=== PATIENT | female | born 1940 | race Caucasian/White ===

== ENCOUNTER 2020-11-28 10:36 | Inpatient (IN) | payer OTHER ==
[2020-11-28 12:24] LABS: BASO % 0.4 % (0-2.0); EOS % 0.2 % (0-4.5); HEMATOCRIT 40.9 % (32.4-45.2); HEMOGLOBIN 13.5 GM/dL (10.7-15.3); LYMPH % 5.3 % (8-40); MCH 30.4 pg (25.7-33.7); MEAN CELL VOLUME 92.1 fl (80-96); MEAN PLT VOLUME 10.4 fl (7.5-11.1); MONO % 6.6 % (3.8-10.2); NEUT % 87.5 % (42.8-82.8); PLATELET COUNT 262 K/MM3 (134-434); RBC 4.44 M/mm3 (3.60-5.2); RDW 14.1 % (11.6-15.6); WHITE BLOOD COUNT 14.8 K/mm3 (4.0-10.0)
[2020-11-28 12:51] LABS: ALBUMIN 3.7 g/dl (3.4-5.0); BLOOD UREA NITROGEN 40.7 mg/dL (7-18); CALCIUM 9.1 mg/dL (8.5-10.1)
[2020-11-28 12:54] LABS: CREATININE 1.1 mg/dL (0.55-1.3)
[2020-11-28 12:56] LABS: BILIRUBIN,TOTAL 0.8 mg/dL (0.2-1); TOT PROT 7.5 g/dl (6.4-8.2)
[2020-11-28 13:13] LABS: N-TERMINAL BNP 357.4 pg/ml (5-450)
[2020-11-28] MEDS: ACETAMINOPHEN 1000 MG/100 ML BAG IVPB ONE ×2 (16:36→16:47)
[2020-11-28] MEDS ORDERED: ACETAMINOPHEN INJECTION 100 ML IVPB ONE (16:37)
[2020-11-28 16:44] LABS: EPI CELLS >36 /uL (0-25.1); HYALINE CASTS 3 /uL (0-3.1); PH,URINE 5.5 (5.0-8.0); URINE APPEARANCE CLOUDY; URINE BACTERIA 463 /uL (0-1359); URINE BILIRUBIN NEGATIVE (NEGATIVE); URINE COLOR YELLOW; URINE GLUCOSE (UA) NEGATIVE (NEGATIVE); URINE KETONE 2+ (NEGATIVE); URINE LEUK ESTERASE 1+ (NEGATIVE); URINE NITRITE NEGATIVE (NEGATIVE); URINE PROTEIN 1+ (NEGATIVE); URINE RBC 226 /uL (0-23.9); URINE UROBILINOGEN 0.2 mg/dL (0.2-1.0); URINE WBC 55 /uL (0-25.8)
[2020-11-28] MEDS ORDERED: CEFTRIAXONE 1,000 MG in DEXTROSE 5%-WATER - 50 ML IVPB ONE (17:08)
[2020-11-28] MEDS ORDERED: CEFTRIAXONE 1 GM/50 ML BAG ONE (17:31)
[2020-11-28] MEDS ORDERED: ACETAMINOPHEN 325 MG TABLET (FP) PO PRN (20:24)
[2020-11-28] MEDS: HEPARIN NA (PORCINE) 5,000 UNITS/ML 1ML VIAL SQ SCH (22:15)
[2020-11-28] MEDS ORDERED: HEPARIN NA (PORCINE) 5,000 UNITS/ML 1ML VIAL ONE (22:17)
[2020-11-29] MEDS ORDERED: ACETAMINOPHEN 325 MG TABLET (FP) ONE (05:14)
[2020-11-29] MEDS ORDERED: HEPARIN NA (PORCINE) 5,000 UNITS/ML 1ML VIAL ONE (05:33)
[2020-11-29] MEDS: HEPARIN NA (PORCINE) 5,000 UNITS/ML 1ML VIAL SQ SCH ×3 (05:51→22:08)
[2020-11-29 07:34] LABS: BASO % 0.2 % (0-2.0); EOS % 0.2 % (0-4.5); HEMATOCRIT 39.7 % (32.4-45.2); HEMOGLOBIN 13.2 GM/dL (10.7-15.3); INR 1.09 (0.83-1.09); MCH 30.6 pg (25.7-33.7); MCHC 33.4 g/dl (32.0-36.0); MEAN CELL VOLUME 91.6 fl (80-96); MEAN PLT VOLUME 9.8 fl (7.5-11.1); MONO % 9.4 % (3.8-10.2); NEUT % 83.2 % (42.8-82.8); PLATELET COUNT 240 K/MM3 (134-434); PROTHROMBIN TIME (PATIENT) 13.4 SEC (9.7-13.0); RBC 4.33 M/mm3 (3.60-5.2); WHITE BLOOD COUNT 11.7 K/mm3 (4.0-10.0)
[2020-11-29 07:36] LABS: ACTIVATED PTT 30.2 SECONDS (25.2-36.5)
[2020-11-29 07:44] LABS: MAGNESIUM 2.1 mg/dL (1.8-2.4)
[2020-11-29 07:48] LABS: PHOSPHOROUS 3.3 mg/dL (2.5-4.9)
[2020-11-29] MEDS ORDERED: CEFTRIAXONE 1 GM/50 ML BAG ONE (09:18)
[2020-11-29] MEDS: CEFTRIAXONE 1 GM in DEXTROSE 5%-WATER - 50 ML IVPB SCH (09:22)
[2020-11-29 09:25] LABS: CALCIUM 9.2 mg/dL (8.5-10.1)
[2020-11-29 09:26] LABS: ALBUMIN 3.5 g/dl (3.4-5.0); BLOOD UREA NITROGEN 31.9 mg/dL (7-18)
[2020-11-29 09:30] LABS: BILIRUBIN,TOTAL 0.7 mg/dL (0.2-1); CREATININE 0.8 mg/dL (0.55-1.3)
[2020-11-29 14:51] VITALS: BMI 30.8
[2020-11-29] MEDS ORDERED: amLODIPine BESYLATE 10 MG TABLET (FP) PO ONE (21:13)
[2020-11-29 23:49] LABS: HIV INTERPRETATION NEGATIVE (NEGATIVE)
[2020-11-30] MEDS: HEPARIN NA (PORCINE) 5,000 UNITS/ML 1ML VIAL SQ SCH ×3 (07:00→21:47)
[2020-11-30] MEDS ORDERED: cefTRIAXone SODIUM 1 GM VIAL ONE (10:03)
[2020-11-30] MEDS ORDERED: DEXTROSE 5%-WATER - 50 ML IVPB ONE (10:03)
[2020-11-30 10:07] LABS: BASO % 0.6 % (0-2.0); EOS % 0.5 % (0-4.5); HEMATOCRIT 40.5 % (32.4-45.2); HEMOGLOBIN 13.7 GM/dL (10.7-15.3); MCHC 33.9 g/dl (32.0-36.0); MEAN CELL VOLUME 91.4 fl (80-96); MEAN PLT VOLUME 9.7 fl (7.5-11.1); MONO % 9.1 % (3.8-10.2); NEUT % 80.8 % (42.8-82.8); PLATELET COUNT 269 K/MM3 (134-434); RBC 4.43 M/mm3 (3.60-5.2); RDW 14.3 % (11.6-15.6); WHITE BLOOD COUNT 10.2 K/mm3 (4.0-10.0)
[2020-11-30] MEDS: CEFTRIAXONE 1 GM in DEXTROSE 5%-WATER - 50 ML IVPB SCH (10:28)
[2020-11-30] MEDS: amLODIPine BESYLATE 5 MG TABLET (FP) PO SCH (10:30)
[2020-11-30 10:36] LABS: ALBUMIN 3.4 g/dl (3.4-5.0); CALCIUM 9.1 mg/dL (8.5-10.1); MAGNESIUM 2.5 mg/dL (1.8-2.4)
[2020-11-30 10:37] LABS: BLOOD UREA NITROGEN 34.6 mg/dL (7-18)
[2020-11-30 10:39] LABS: PHOSPHOROUS 2.9 mg/dL (2.5-4.9)
[2020-11-30 10:40] LABS: CREATININE 0.8 mg/dL (0.55-1.3)
[2020-11-30 10:41] LABS: BILIRUBIN,TOTAL 0.5 mg/dL (0.2-1); TOT PROT 7.1 g/dl (6.4-8.2)
[2020-11-30 14:58] LABS: SYPHILIS W/ RPR CONF REACTIVE (NONREACTIVE)
[2020-12-01] MEDS: HEPARIN NA (PORCINE) 5,000 UNITS/ML 1ML VIAL SQ SCH ×4 (06:55→21:01)
[2020-12-01] MEDS ORDERED: cefTRIAXone SODIUM 1 GM VIAL ONE (08:33)
[2020-12-01] MEDS ORDERED: DEXTROSE 5%-WATER - 50 ML IVPB ONE (08:33)
[2020-12-01] MEDS: CEFTRIAXONE 1 GM in DEXTROSE 5%-WATER - 50 ML IVPB SCH (09:11)
[2020-12-01] MEDS: amLODIPine BESYLATE 5 MG TABLET (FP) PO SCH (09:11)
[2020-12-01 09:26] LABS: BASO % 0.3 % (0-2.0); EOS % 0.7 % (0-4.5); HEMATOCRIT 40.2 % (32.4-45.2); HEMOGLOBIN 13.4 GM/dL (10.7-15.3); MCH 30.8 pg (25.7-33.7); MCHC 33.4 g/dl (32.0-36.0); MEAN CELL VOLUME 92.2 fl (80-96); MEAN PLT VOLUME 9.8 fl (7.5-11.1); MONO % 10.2 % (3.8-10.2); NEUT % 79.8 % (42.8-82.8); PLATELET COUNT 263 K/MM3 (134-434); RBC 4.37 M/mm3 (3.60-5.2); RDW 14.2 % (11.6-15.6); WHITE BLOOD COUNT 9.5 K/mm3 (4.0-10.0)
[2020-12-01 09:49] LABS: CALCIUM 9.4 mg/dL (8.5-10.1)
[2020-12-01 09:50] LABS: ALBUMIN 3.4 g/dl (3.4-5.0); BLOOD UREA NITROGEN 48.3 mg/dL (7-18); MAGNESIUM 2.6 mg/dL (1.8-2.4)
[2020-12-01 09:53] LABS: CREATININE 0.9 mg/dL (0.55-1.3); PHOSPHOROUS 3.3 mg/dL (2.5-4.9)
[2020-12-01 09:54] LABS: BILIRUBIN,TOTAL 0.8 mg/dL (0.2-1)
[2020-12-01] MEDS ORDERED: amLODIPine BESYLATE 10 MG TABLET (FP) PO SCH (15:39)
[2020-12-01] MEDS ORDERED: HALOPERIDOL 1 MG TABLET PO ONE (17:45)
[2020-12-01] MEDS ORDERED: HALOPERIDOL 0.5 MG TABLET PO ONE (18:00)
[2020-12-02] MEDS: HEPARIN NA (PORCINE) 5,000 UNITS/ML 1ML VIAL SQ SCH ×2 (05:50→14:14)
[2020-12-02] MEDS ORDERED: POTASSIUM CHLORIDE ORAL LIQUID 20 MEQ/15 ML PO ONE (07:45)
[2020-12-02] MEDS ORDERED: DEXTROSE 5%-WATER - 50 ML IVPB ONE (08:45)
[2020-12-02] MEDS ORDERED: cefTRIAXone SODIUM 1 GM VIAL ONE (08:45)
[2020-12-02] MEDS: CEFTRIAXONE 1 GM in DEXTROSE 5%-WATER - 50 ML IVPB SCH (09:14)
[2020-12-02] MEDS ORDERED: HALOPERIDOL 0.5 MG TABLET PO ONE (13:46)
[2020-12-02] MEDS ORDERED: LORazepam 2 MG/ML SDV VIAL IVPUSH ONE (14:45)
[2020-12-03] MEDS ORDERED: ASPIRIN 300 MG SUPP.RECT PR ONE (01:15)
[2020-12-03 02:08] LABS: BASO % 0.4 % (0-2.0); EOS % 0.5 % (0-4.5); HEMATOCRIT 45.1 % (32.4-45.2); HEMOGLOBIN 14.1 GM/dL (10.7-15.3); LYMPH % 27.1 % (8-40); MCH 30.2 pg (25.7-33.7); MCHC 31.3 g/dl (32.0-36.0); MEAN CELL VOLUME 96.3 fl (80-96); MONO % 10.2 % (3.8-10.2); NEUT % 61.8 % (42.8-82.8); PLATELET COUNT 149 K/MM3 (134-434); RBC 4.69 M/mm3 (3.60-5.2); RDW 14.8 % (11.6-15.6); WHITE BLOOD COUNT 17.6 K/mm3 (4.0-10.0)
[2020-12-03 02:12] LABS: INR 1.1 (0.83-1.09); PROTHROMBIN TIME (PATIENT) 13.5 SEC (9.7-13.0)
[2020-12-03 02:15] LABS: ACTIVATED PTT 33.5 SECONDS (25.2-36.5)
[2020-12-03 02:19] LABS: CALCIUM 8.5 mg/dL (8.5-10.1)
[2020-12-03 02:20] LABS: BLOOD UREA NITROGEN 68.9 mg/dL (7-18); MAGNESIUM 2.8 mg/dL (1.8-2.4)
[2020-12-03 02:23] LABS: CREATININE 1.6 mg/dL (0.55-1.3); PHOSPHOROUS 6.3 mg/dL (2.5-4.9)
[2020-12-03 02:24] LABS: BILIRUBIN,TOTAL 0.4 mg/dL (0.2-1)
[2020-12-03 02:25] LABS: TOT PROT 6.9 g/dl (6.4-8.2)
[2020-12-03 02:46] LABS: ARTERIAL BLD GAS O2 SATURATION 79.8 mmHg (95-98); ARTERIAL BLOOD GAS BASE EXCESS -16.3 mmol/L (-2-2); ARTERIAL BLOOD GAS PO2 72.1 mmHg (80-100)
[2020-12-03 02:49] LABS: ALLENS TEST POSITIVE
[2020-12-03 02:50] LABS: VENT MODE A/C
[2020-12-03 02:51] LABS: VENT RATE 16
[2020-12-03 02:52] LABS: ARTERIAL BLOOD GAS pH 6.905 (7.350-7.450)
[2020-12-03 03:22] VITALS: BP 139/70; PULSE 82; TEMP 97.9
[2020-12-03 04:06] LABS: PLATELET ESTIMATE SLT DECREASE
== END 2020-12-03 05:30 | disposition expired | DRG 56 ==
LOC: JER 10:36 → JERBED 17:39 → J5S 11-29 09:28 → JICU 12-03 03:35
PROVIDERS: ATTEND Internal Medicine
PROC: 5A1935Z Respiratory Ventilation, Less than 24 Consecutive Hours (ICD-10-PCS; principal; 2020-12-03)
PROC: 0CHY7BZ Insertion of Airway into Mouth and Throat, Via Natural or Artificial Opening (ICD-10-PCS; 2020-12-03)
PROC: 5A12012 Performance of Cardiac Output, Single, Manual (ICD-10-PCS; 2020-12-03)
DX: A52.3 Neurosyphilis, unspecified (principal); I21.3 ST elevation (STEMI) myocardial infarction of unspecified site; G92 Toxic encephalopathy; G91.2 (Idiopathic) normal pressure hydrocephalus; N39.0 Urinary tract infection, site not specified; I46.2 Cardiac arrest due to underlying cardiac condition; I10 Essential (primary) hypertension; M19.90 Unspecified osteoarthritis, unspecified site; A53.0 Latent syphilis, unspecified as early or late; N39.42 Incontinence without sensory awareness; E66.01 Morbid (severe) obesity due to excess calories; Z68.29 Body mass index [BMI] 29.0-29.9, adult; F03.90 Unspecified dementia, unspecified severity, without behavioral disturbance, psychotic disturbance, mood disturbance, and anxiety; D72.829 Elevated white blood cell count, unspecified
CPT/HCPCS: 36415; 36600; 70450-TC; 71045-TC-FY; 72131-TC; 73502-TC-LT-FY; 73523-TC-FY; 80053; 80061; 81003; 82607; 82803; 82962; 83036; 83605; 83721; 83735; 83880; 84100; 84443; 84484; 85025; 85610; 85730; 86593; 86780; 87086; 87389; 93005; 93010; 94002; 97116-GP; 97161-GP; 99285-25; C9803; J0131; J1644; U0003